=== PATIENT | male | born 1965 | race Caucasian/White ===

== ENCOUNTER 2016-12-31 12:22 | Emergency (ER) | payer MEDICAID ==
[~2016-12-31] VITALS: Ht 190.5 cm; Wt 89.9 kg
[~2016-12-31 12:22] MED LIST: CEPH-376 PO; HYDR-3138 PO
[2016-12-31] MEDS ORDERED: SODIUM CHLORIDE FLUSH 10ML SYR IVF ONE (13:00)
[2016-12-31] MEDS ORDERED: ASPIRIN 81 MG TABLET CHEW PO ONE (13:00)
[2016-12-31 13:14] LABS: HEMATOCRIT 43.7 % (39.2-51.8); HEMOGLOBIN 14.7 g/dL (13.7-18.0); WHITE BLOOD COUNT 6.5 x10^3/uL (3.4-10)
[2016-12-31 13:23] LABS: BLOOD UREA NITROGEN 12 mg/dL (7-18)
[2016-12-31] MEDS ORDERED: ASPIRIN 81 MG TABLET CHEW ONE (13:25)
[2016-12-31 13:30] LABS: IS PT STATUS REG ER OR PRE ER? YES
[2016-12-31] MEDS ORDERED: POTASSIUM CHLORIDE 20 MEQ TAB.ER.PRT ONE (14:30)
[2016-12-31] MEDS ORDERED: POTASSIUM CHLORIDE 20 MEQ TAB.ER.PRT PO ONE (14:30)
[2016-12-31 15:14] VITALS: BP 117/68
== END 2016-12-31 15:15 ==
LOC: ED 14:11
DX: J20.8 Acute bronchitis due to other specified organisms (principal); E87.6 Hypokalemia; Z88.0 Allergy status to penicillin
CPT/HCPCS: 36415; 71010; 80048; 82040; 84484; 85025; 93005; 99285